=== PATIENT | male | born 1960 | race Two or more races ===

== ENCOUNTER 2018-02-16 05:03 | Inpatient (IN) | payer OTHER ==
[~2018-02-16] VITALS: Ht 167.6 cm; Wt 81.6 kg
[2018-02-16] MEDS ORDERED: ANESTHESIA TRAY IN PYXIS 1 EA TRAY MC ONE (06:12)
[2018-02-16] MEDS ORDERED: BUPIVACAINE MPF 0.5% W/EPI INJ 30 ML VIAL ONE (06:12)
[2018-02-16] MEDS ORDERED: BACITRACIN 50000 UNITS/VIAL ONE (06:13)
[2018-02-16] MEDS ORDERED: KETOROLAC TROMETHAMINE INJ 30 MG/ML VIAL ONE (06:13)
[2018-02-16] MEDS ORDERED: FENTANYL PF 250MCG/5ML AMPUL ONE (06:26)
[2018-02-16] MEDS ORDERED: HYDROMORPHONE INJ 2 MG/ML DISP.SYRIN ONE ×2 (06:26→08:59)
[2018-02-16] MEDS ORDERED: SUCCINYLCHOLINE CHLORIDE 20 MG/ML VIAL ONE (06:27)
[2018-02-16] MEDS ORDERED: oxyCODONE HCL SR 10MG TAB.SR.12H PO ONE (06:33)
[2018-02-16] MEDS ORDERED: ACETAMINOPHEN 325 MG TABLET ONE (06:33)
[2018-02-16] MEDS ORDERED: CELECOXIB 100 MG CAPSULE ONE (06:33)
[2018-02-16] MEDS ORDERED: CEFAZOLIN SODIUM/DEXTROSE,ISO 50 ML IV ONE (06:33)
[2018-02-16] MEDS ORDERED: TRANEXAMIC ACID 3,000 MG in SODIUM CHLORIDE IRRIG SOLUTION 70 ML IR ONE (08:00)
[2018-02-16] MEDS ORDERED: BISACODYL SUPP (10 MG) 10 MG/SUPP.RECT SUPP.RECT RC PRN (09:00)
[2018-02-16] MEDS ORDERED: ZOLPIDEM TARTRATE 5 MG TABLET PO PRN (09:00)
[2018-02-16] MEDS ORDERED: ONDANSETRON HCL/PF 4 MG/2 ML VIAL IV PRN (09:00)
[2018-02-16] MEDS ORDERED: ACETAMINOPHEN 325 MG TABLET PO PRN (09:30)
[2018-02-16] MEDS ORDERED: SENNOSIDES 8.6 MG TABLET PO PRN (09:30)
[2018-02-16] MEDS ORDERED: DOCUSATE SODIUM 250 MG CAPSULE PO PRN (09:30)
[2018-02-16] MEDS ORDERED: HYDROCODONE/APAP 5/325MG 1 EACH TABLET PO PRN (09:30)
[2018-02-16 09:45] VITALS: BP 151/90
--- NOTE | 2018-02-16 09:50 | NUR ---
RECEIVED PATIENT FROM DAY SURGERY. PATIENT S/P RIGHT KNEE TOTAL REPLACEMENT. PATIENT IS A/OX3. [place] SPEAKING, ABLE TO UNDERSTAND A LITTLE [place], FAMILY AT BEDSIDE. NO ACUTE DISTRESS, NO SOB. PAIN ON RIGHT KNEE 5/10, WILL GIVE PAIN MEDS ORDERED. IV SITE INTACT AND PATENT. DVT PUMPS ON. KEPT PATIENT SAFE AND COMFORTABLE. BED IN LOW/LOCKED POSITION, SIDERAILS UPX2, CALL LIGHT IN REACH. WILL CONTINUE TO MONITOR ACCORDINGLY. ORDERS NOTED AND WILL CARRY OUT.
[2018-02-16] MEDS ORDERED: oxyCODONE IR immediate release 5 MG PO PRN (11:00)
[2018-02-16] MEDS: IV D5/0.45 NACL 1,000 ML IV PRN ×2 (11:13→22:07)
--- NOTE | 2018-02-16 15:00 | NUR ---
HOME MEDS WAS BROUGHT TO THE PHARMACY. ALL BELONGINGS NOTED ON CHECKLIST BY GERALDINE GIFFORD.
[2018-02-16] MEDS: ANCEF 1 GM/50 ML D5W IV SCH ×4 (15:01→22:53)
[2018-02-16 16:00] VITALS: BP 134/74
[2018-02-16] MEDS ORDERED: BENA20TA9 PO ×2 (16:18→16:22)
[2018-02-16] MEDS: ASPIRIN 325 MG TABLET PO SCH (16:38)
--- NOTE | 2018-02-16 19:00 | NUR ---
MS RN INITIAL NOTES Received patient awake on semi-Hernandez's position, with patent peripheral IV line L Wrist G@18 with D5 1/2NS infusing well @ 125cc/hr as ordered. S/P R total knee replacement, affected site wrap with bandage clean, dry and intact, with ice pack and elevated with 1 pillow. Patient denies discomfort at this time. A/O x4, able to communicate needs. Ensured safety, kept bed low and locked. Call light within easy reach. Will monitor accordingly.
[2018-02-16] MEDS: BENAZEPRIL HCL 10 MG TABLET PO SCH (19:34)
--- NOTE | 2018-02-16 19:34 | NUR ---
PATIENT IN STABLE CONDITION. ALL NEEDS ATTENDED AND PROVIDED. ALL DUE MEDICATIONS GIVEN ORDERED. WALKE WITH PHYSICAL THERAPT TODAY, TOLERATED WELL. KEPT PATIENT SAFE AND COMFORTABLE. BED IN LOW/LOCKED POSITION, SIDERAILS UPX2, CALL LIGHT IN REACH. ENDORSED TO NIGHT RN FOR RIMA
[2018-02-16 20:00] VITALS: BP 151/75
[2018-02-16] MEDS: HYDROMORPHONE 1 MG/1 ML DISP.SYRIN SQ PRN (20:32)
[2018-02-16] MEDS ORDERED: MAG HYDROX/AL HYDROX/SIMETH 30 ML UDC PO PRN (23:00)
[2018-02-16] MEDS ORDERED: MAGNESIUM HYDROXIDE 30 ML UDC PO PRN (23:00)
[2018-02-16] MEDS ORDERED: MENTHOL/CETYLPYRD (CEPACOL) 1 LOZ LOZENGE PO PRN (23:00)
[2018-02-16] MEDS ORDERED: diphenhydrAMINE HCL 25 MG CAPSULE PO PRN (23:00)
[2018-02-16] MEDS ORDERED: CLONIDINE HCL 0.1 MG TABLET PO PRN (23:00)
[2018-02-17] MEDS: oxyCODONE IR immediate release 5 MG PO PRN ×2 (01:01→15:37)
[2018-02-17] MEDS: HYDROMORPHONE 1 MG/1 ML DISP.SYRIN SQ PRN ×4 (03:28→20:36)
--- NOTE | 2018-02-17 03:30 | NUR ---
MS RN NOTES Patient awaken of pain. Diluadid 1mg SC administered as ordered. Assisted patient to reposition comfortably. Will continue to monitor.
--- NOTE | 2018-02-17 06:37 | NUR ---
MS RN CLOSING NOTES Patient awake on semi-Fowlers position, with patent peripheral IV line L wrist G#18 SL. Patient is now tolerating PO intakes, D/C IVF, on regular diet as ordered. A/O x 4, ambulatory with walker, with standby assistance. Medicated for pain, noted to be effective. Encourage on PO pain med as discussed with Dr. Dean, patient verbalized understanding. Kept R foot elevated with 1 pillow and kept straight when on bed, no pillows under the affected knee, patient noted to be compliant. Patient verbalized he wants to be D/C home with family. Closely monitor for pain, attended all needs as soon as possible. No new complaints made, afebrile the while shift. Endorsed to the next shift.
--- NOTE | 2018-02-17 07:30 | NUR ---
MS RN OPENING NOTE RECEIVED PATIENT IN BED. ALERT ORIENTED X4, ON ROOM AIR TOLERATING WELL. IN NO APPARENT DISTRESS OR DISCOMFORT AT THIS TIME. RESPIRATIONS EVEN AND UNLABORED. ABLE TO COMMUNICATE NEEDS. REPORTS TOLERABLE PAIN AT THIS TIME. NO SOB. PATIENT IS WITH LEFT WRIST IVC 18G, SL, PATENT AND INTACT. CPM MACHINE IN USE AT THIS TIME. RIGHT KNEE DRESSING INTACT. TO BE REPLACED BY MD. ABLE TO COMMUNICATE NEEDS. SAFETY MEASURES IN PLACE, BED IN LOW LOCKED POSITION, SIDE RAILS UP X2, CALL LIGHT WITHIN EASY REACH. WILL CONTINUE TO MONITOR.
[2018-02-17 07:33] LABS: CALCIUM, SERUM 8.6 mg/dL (8.5-10.1); CREATININE 0.9 mg/dL (0.6-1.3); POTASSIUM 4.3 mmol/L (3.5-5.1)
[2018-02-17 07:51] LABS: BASOPHILS % (AUTO) 0.1 % (0.0-2.0); HEMATOCRIT 38 % (39-51); HEMOGLOBIN 13.1 g/dL (13.5-17.5); LYMPHOCYTES # (AUTO) 1.8 /CMM (0.8-4.8); LYMPHOCYTES % (AUTO) 8.1 % (20.0-44.0); MEAN CORPUSCULAR HEMOGLOBIN 33 PG (26.0-33.0); MEAN CORPUSCULAR HGB CONC 35 g/dl (31.0-36.0); MEAN CORPUSCULAR VOLUME 93 fL (80-96); MONOCYTES # (AUTO) 1.7 /CMM (0.1-1.30); MONOCYTES % (AUTO) 7.7 % (2.0-12.0); NEUTROPHILS % (AUTO) 84.1 % (43.0-81.0); PLATELET COUNT (AUTO) 239 /CMM (150-450); RDW COEFFICIENT OF VARIATION 12.6 (11.5-15.0); RED BLOOD CELL COUNT(AUTO) 4.04 MIL/uL (4.5-6.0); WHITE BLOOD COUNT (AUTO) 22.5 K/uL (4.3-11.0)
[2018-02-17 08:00] VITALS: BP 114/66
[2018-02-17] MEDS: BENAZEPRIL HCL 10 MG TABLET PO SCH (09:00)
[2018-02-17] MEDS: ASPIRIN 325 MG TABLET PO SCH ×2 (09:25→17:20)
[2018-02-17] MEDS: FAMOTIDINE (20 MG) 20 MG TABLET PO SCH ×2 (09:25→20:35)
[2018-02-17] MEDS: DOCUSATE SODIUM 100 MG CAPSULE PO SCH ×2 (09:27→17:20)
[2018-02-17 09:40] LABS: LYMPHOCYTES % (MANUAL) 8 % (16-48); MONOCYTES % (MANUAL) 7 % (0-11.0); NEUTROPHILS % (MANUAL) 85 (42-76)
[2018-02-17 16:00] VITALS: BP 159/86
--- NOTE | 2018-02-17 18:52 | NUR ---
MS RN CLOSING NOTE PATIENT IN BED. ALERT ORIENTED X4, ON ROOM AIR TOLERATING WELL. IN NO APPARENT DISTRESS OR DISCOMFORT AT THIS TIME. RESPIRATIONS EVEN AND UNLABORED. ABLE TO COMMUNICATE NEEDS. REPORTS PAIN DECREASED TO TOLERABLE LEVEL AFTER ADMINISTERED PAIN MEDICATION. NO SOB. PATIENT IS WITH LEFT WRIST IVC 18G, SL, PATENT AND INTACT. RIGHT LEG STRAIGHT IN BED. KNEE DRESSING INTACT. TO BE REPLACED BY MD. ABLE TO COMMUNICATE NEEDS. TOLERATES PO INTAKE. PATIENT VOIDED BUT NO BM TODAY. SAFETY MEASURES IN PLACE, BED IN LOW LOCKED POSITION, SIDE RAILS UP X2, CALL LIGHT WITHIN EASY REACH. WILL ENDORSE TO PM NURSE FOR RIMA.
--- NOTE | 2018-02-17 19:30 | NUR ---
MS RN OPENING NOTES RECEIVED PATIENT IN BED. ALERT ORIENTED X4, TALKING OVER THE PHONE. ON ROOM AIR TOLERATING WELL. IN NO APPARENT DISTRESS OR DISCOMFORT AT THIS TIME. RESPIRATIONS EVEN AND UNLABORED. ABLE TO COMMUNICATE NEEDS. REPORTS TOLERABLE PAIN AT THIS TIME. NO PAIN MEDS REQUESTED AT THIS TIME. INSTRUCTED TO PATIENT TO INFORM THE NURSE IF PAIN MEDS NEEDED, VERBALIZED UNDERSTANDING. PATIENT IS WITH LEFT WRIST IVC 18G, SL, PATENT AND INTACT. CPM MACHINE IN USE AT THIS TIME. RIGHT KNEE DRESSING INTACT. TO BE REPLACED BY MD. ABLE TO COMMUNICATE NEEDS. SAFETY MEASURES IN PLACE, BED IN LOW LOCKED POSITION, SIDE RAILS UP X2, CALL LIGHT WITHIN EASY REACH. WILL CONTINUE TO MONITOR.
[2018-02-17 20:00] VITALS: BP 183/102
--- NOTE | 2018-02-17 20:36 | NUR ---
PRN DILAUDID GIVEN PT VERBALIZED C/O PAIN TO RIGHT KNEE 02/09, OFFERED HIM PO OXYCODONE BUT REFUSED TO TAKE PO MEDS, STATING THAT PO OXYCODONE IS NOT EFFECTIVE FOR HIM. ONLY WANTED TO TAKE PRN DILAUDID. DILAUDID GIVEN ORDERED. WILL REASSESS FOR EFFECTIVENESS.
[2018-02-17 21:00] VITALS: BP 147/90
[2018-02-17] MEDS ORDERED: oxyCODONE IR immediate release 5 MG PO ONE (22:00)
--- NOTE | 2018-02-17 22:07 | NUR ---
OXYCODONE GIVEN PATIENT SEEN BY DR ROSLYN MD ORDERED OXYCODONE ONCE AT THIS TIME & THEN Q3HRS PO FOR 1-3 PAIN. OXYCODONE DOSE WAS INCREASED TO 15 MG SINCE PT TOLD MD THAT 10 MG OF OXY IS NOT EFFECTIVE FOR HIM. NOTED & CARRIED OUT. PAIN MED GIVEN ORDERED, WILL REASSESS FOR EFFECTIVENESS.
[2018-02-18] MEDS: HYDROMORPHONE 1 MG/1 ML DISP.SYRIN SQ PRN ×4 (00:13→16:01)
--- NOTE | 2018-02-18 00:13 | NUR ---
PRN DILAUDID GIVEN PT VERBALIZED C/O PAIN TO RIGHT KNEE 02/09, PRN DILAUDID GIVEN ORDERED. WILL REASSESS FOR EFFECTIVENESS.
--- NOTE | 2018-02-18 01:29 | NUR ---
MS RN NOTE PT IS NOTED TO BE SLEEPING COMFORTABLY AT THIS TIME. NO C/O PAIN VERBALIZED AT THIS TIME, WILL CONTINUE TO MONITOR CLOSELY.
[2018-02-18] MEDS: oxyCODONE IR immediate release 5 MG PO PRN ×3 (03:20→13:00)
--- NOTE | 2018-02-18 03:20 | NUR ---
PRN OXYCODONE GIVEN PT HAD C/O RIGHT KNEE PAIN 09/09, WANTED TO TAKE PO MED. PRN OXYCODONE GIVEN. WILL REASSESS FOR EFFECTIVENESS.
--- NOTE | 2018-02-18 05:56 | NUR ---
PRN DILAUDID GIVEN PT VERBALIZED C/O PAIN TO RIGHT KNEE 01/09, PRN DILAUDID GIVEN ORDERED. WILL REASSESS FOR EFFECTIVENESS.
[2018-02-18] MEDS: IV D5/0.45 NACL 1,000 ML IV PRN (06:10)
--- NOTE | 2018-02-18 06:42 | NUR ---
MS RN CLOSING NOTES PATIENT IN BED. ALERT ORIENTED X4, ON ROOM AIR TOLERATING WELL. IN NO APPARENT DISTRESS OR DISCOMFORT AT THIS TIME. RESPIRATIONS EVEN AND UNLABORED. ABLE TO COMMUNICATE NEEDS. REPORTS PAIN DECREASED TO TOLERABLE LEVEL AFTER ADMINISTERED PAIN MEDICATION. NO SOB. PATIENT IS WITH LEFT WRIST IVC 18G, SL, PATENT AND INTACT. RIGHT LEG STRAIGHT IN BED. KNEE DRESSING INTACT. TO BE REPLACED BY MD. TOLERATES PO INTAKE. PATIENT VOIDED BUT NO BM AT NIGHT. SAFETY MEASURES IN PLACE, BED IN LOW LOCKED POSITION, SIDE RAILS UP X2, CALL LIGHT WITHIN EASY REACH. WILL ENDORSE TO AM NURSE FOR RIMA.
--- NOTE | 2018-02-18 07:20 | NUR ---
MS/RN OPENING NOTE PATIENT IS RECEIVED IN BED. AWAKE, ALERT AND ORIENTED X4. DENIES SOB. RESPIRATION REGULAR AND UNLABORED. PATIENT IN ROOM AIR. DENIES PAIN AT THIS TIME. LEFT WRIST G 18 PATENT AND IV FLUID INFUSING WITH NO S/S INFILTRATION. RIGHT KNEE DRESSING INTACT AND DRY. BED LOW AND LOCKED. SIDE RAILS UP X3. CALL LIGHT WITHIN REACH. WILL CONTINUE TO MONITOR.
[2018-02-18 07:33] LABS: BASOPHILS % (AUTO) 0.3 % (0.0-2.0); EOSINOPHILS % (AUTO) 0.3 % (0.0-6.0); HEMATOCRIT 35 % (39-51); HEMOGLOBIN 12.4 g/dL (13.5-17.5); LYMPHOCYTES # (AUTO) 2.5 /CMM (0.8-4.8); LYMPHOCYTES % (AUTO) 16.2 % (20.0-44.0); MEAN CORPUSCULAR HEMOGLOBIN 33 PG (26.0-33.0); MEAN CORPUSCULAR HGB CONC 35 g/dl (31.0-36.0); MEAN CORPUSCULAR VOLUME 93 fL (80-96); MONOCYTES # (AUTO) 1.4 /CMM (0.1-1.30); MONOCYTES % (AUTO) 9.3 % (2.0-12.0); NEUTROPHILS # (AUTO) 11.2 /CMM (1.8-8.9); NEUTROPHILS % (AUTO) 73.9 % (43.0-81.0); PLATELET COUNT (AUTO) 232 /CMM (150-450); RDW COEFFICIENT OF VARIATION 12.6 (11.5-15.0); RED BLOOD CELL COUNT(AUTO) 3.78 MIL/uL (4.5-6.0); WHITE BLOOD COUNT (AUTO) 15.1 K/uL (4.3-11.0)
[2018-02-18 07:40] LABS: CALCIUM, SERUM 8.3 mg/dL (8.5-10.1); POTASSIUM 4.1 mmol/L (3.5-5.1)
[2018-02-18 08:00] VITALS: BP 172/90
[2018-02-18 08:24] VITALS: BP 172/70
[2018-02-18] MEDS: FAMOTIDINE (20 MG) 20 MG TABLET PO SCH (08:24)
[2018-02-18] MEDS: DOCUSATE SODIUM 100 MG CAPSULE PO SCH ×2 (08:24→16:00)
[2018-02-18] MEDS: ASPIRIN 325 MG TABLET PO SCH ×2 (08:24→16:00)
[2018-02-18] MEDS: BENAZEPRIL HCL 10 MG TABLET PO SCH (08:24)
[2018-02-18] MEDS ORDERED: ASPI-992 PO (10:17)
--- NOTE | 2018-02-18 10:18 | NUR ---
MS/RN NOTE DR CHIN IS MADE AWARE OF 02/18/18 WBC RESULT AND PER MD NO NEW ORDER.
--- NOTE | 2018-02-18 13:18 | NUR ---
MS/RN NOTE RIGHT KNEE DRESSING CHANGE DONE BY JONNY MENDOZA. NO BLEEDING AND NO S/S INFECTION NOTED.
== END 2018-02-18 17:10 | disposition home health service (06) | DRG 470 ==
LOC: DS 05:03 → MED 09:56
PROVIDERS: ADMIT Specialist
PROC: 0SRC0J9 Replacement of Right Knee Joint with Synthetic Substitute, Cemented, Open Approach (ICD-10-PCS; principal; 2018-02-16 06:30)
DX: M17.31 Unilateral post-traumatic osteoarthritis, right knee (principal); I10 Essential (primary) hypertension; Z68.29 Body mass index [BMI] 29.0-29.9, adult; E66.9 Obesity, unspecified; G89.4 Chronic pain syndrome; D72.829 Elevated white blood cell count, unspecified
CPT/HCPCS: 36415; 80048-TC; 85025-TC; 86850-TC; 86921-TC; 87081-TC; 88305-TC; 88311-TC; 93971-TC; 97110-TC; 97116-TC; 97530-TC; 97760-TC; A4217; A4606; A6402; C1713; J0330; J0690; J1100; J1170; J1885; J2405; J2704; J3010; J3490; J7030; J7060; L1830; Z7610